=== PATIENT | female | born 1955 | race Caucasian/White ===

== ENCOUNTER 2022-12-09 13:54 | Outpatient (REF) | payer BC, SELFPAY ==
[2022-12-09 17:43] LABS: Appearance Urine Clear; Color Urine Yellow; Glucose Urine UA Negative (Negative); Leukocyte Esterase Urine Trace (Negative); Nitrite Urine Negative (Negative); PH 5.5 (5.0-9.0); UMIC TRIGGER UA YES; Urine Blood Moderate (2+) (Negative); Urine Ketones 15 mg/dL (Negative); Urine Protein Negative (Neg-Trace)
[2022-12-09 17:47] LABS: C Reactive Protein < 0.10 mg/dL (< or = 0.50); Rheumatoid Factor < 13.0 IU/mL (<15.0)
[2022-12-09 17:50] LABS: Bacteria Urine None Seen (None Seen); Hyaline Casts Urine 0-2 /LPF (0-2); WBC Urine 0-5 /HPF (0-5)
[2022-12-09 18:18] LABS: Creatinine Urine 158.21 mg/dL; Protein/Creatinine Ratio, Ur 0.05 (<0.2); Total Protein Urine Random 8 mg/dL (<12)
[2022-12-10 17:08] LABS: Complement C3 148 mg/dL (83-193)
[2022-12-10 19:37] LABS: Anti DNA DS Antibody 1 IU/mL; Antibody to SS-A Antigen <1.0 NEG AI (<1.0 NEG); Antibody to SS-B Antigen <1.0 NEG AI (<1.0 NEG); SM/Ribonucleoprotein Ab <1.0 NEG AI (<1.0 NEG); Smith Protein <1.0 NEG AI (<1.0 NEG)
[2022-12-10 21:04] LABS: Prot Elec - Albumin 5.2 g/dL (3.8-4.8); Prot Elec - Alpha1 0.3 g/dL (0.2-0.3); Prot Elec - Alpha2 0.7 g/dL (0.5-0.9); Prot Elec - Beta 1 0.5 g/dL (0.4-0.6); Prot Elec - Beta 2 0.4 g/dL (0.2-0.5); Prot Elec - Gamma 0.9 g/dL (0.8-1.7); Prot Elec - Total Protein 7.9 g/dL (6.1-8.1)
[2022-12-11 09:10] LABS: HBc Num1 0.07 S/CO (0.00-0.79); HBsAGNum1 0.23 S/CO (0.00-0.99); Hepatitis B Core Antibody Nonreactive (Nonreactive); Hepatitis B Surface Antigen Negative (Negative); ~HepC Num1 0.07 S/CO (0.00-0.79); ~Hepatitis C Antibody Nonreactive (Nonreactive)
[2022-12-11 09:45] LABS: HBS Num1 111.87 mIU/mL (0-7.99); ~Hepatitis B Surface Antibody REACTIVE (Nonreactive)
[2022-12-11 10:30] LABS: ~Hepatitis A Antibody IgM Nonreactive (Nonreactive)
[2022-12-12 23:05] LABS: Cyclic Citrullinated Peptide <16 UNITS
[2022-12-13 14:28] LABS: Immunoglobulin G Subclass 1 483 mg/dL (382-929); Immunoglobulin G Subclass 2 276 mg/dL (241-700); Immunoglobulin G Subclass 3 99 mg/dL (22-178); Immunoglobulin G Subclass 4 41.9 mg/dL (4-86); Immunoglobulin G Total 917 mg/dL (600-1540)
[2022-12-14 18:07] LABS: IgA 219 mg/dL (70-320); IgG 1005 mg/dL (600-1540); IgM 62 mg/dL (50-300)
[2022-12-15 14:28] LABS: Angiotensin Converting Enzyme 26.4 U/L (9-67)
[2022-12-15 15:04] LABS: DNAds, Crithidia Antibody Negative (Negative)
== END 2022-12-09 13:55 | disposition home or self-care (01) ==
LOC: HO.LAB 13:54
PROVIDERS: PCP Nurse Practitioner Family; Visit Provider Student in an Organized Health Care Education/Training Program
DX: Z11.7 Encounter for testing for latent tuberculosis infection (principal); M32.9 Systemic lupus erythematosus, unspecified; M35.00 Sjogren syndrome, unspecified; D89.89 Other specified disorders involving the immune mechanism, not elsewhere classified; M25.541 Pain in joints of right hand; D86.9 Sarcoidosis, unspecified; R76.8 Other specified abnormal immunological findings in serum
CPT/HCPCS: 81001; 82164; 82595; 82784; 84156; 84165; 86140; 86160; 86200; 86225; 86235; 86255; 86334; 86431; 86704; 86706; 86709; 86803; 87340

== ENCOUNTER → 2023-01-14 08:31 | Outpatient (BNVA) | payer BC, SELFPAY | PROVIDERS: PCP Nurse Practitioner Family; Visit Provider Student in an Organized Health Care Education/Training Program | DX: Z13.89 Encounter for screening for other disorder (principal) ==

== ENCOUNTER 2024-01-12 09:15 | Outpatient (AMB) | payer BC, SELFPAY ==
--- NOTE | 2024-01-12 09:19 | MHC.OFFVIS ---
Intake Vital Signs 01/12/24 09:21 Height 5 ft 4.5 in Weight 141 lb 15.643 oz BMI 24.0 BP 116/68 Blood Pressure Location Rt brachial Position Sitting Pulse 86 Pulse Source Pulse Oximeter Temp 97.6 F Temp Source Skin Pulse Oximetry (%) 99 Oxygen Delivery Method Room Air Intake Visit Reasons: Sicca Intake Note: Patient last seen 01/14/23 presents today for 1 yr follow up. Reports she had salivary gland biopsy done on 12/28/23 and it was negative for SS. Maintenance Mgr Required: No Accompanied by: Self / Same As Patient Allergies novacaine Allergy (Unknown, Uncoded 01/12/24 09:25) Unknown Medication List - Last Reconciled 01/12/24 by Susan Gomez MD amlodipine 2.5 mg PO DAILY cholecalciferol (vitamin D3) 25 mcg PO DAILY levothyroxine 75 mcg PO DAILY omeprazole 20 mg PO DAILY pilocarpine HCl (Salagen (pilocarpine)) 5 mg PO TID PRN HPI HPI Comments History of Present Illness Details 68-year-old female with sicca symptoms returns for follow-up. She just had a lip biopsy earlier this month and was told it was negative for Sjogren's. She remains frustrated that there is no identifiable cause of her dry mouth. She continues to do multiple measures including drinking plenty of water, showing XyliMelts gum, she only uses the pilocarpine every once in a while. Only when needed. She states that it is not consistently helpful. She states that sometimes when she takes pilocarpine she would have tingling and numbness of the outside of her right thigh. She also states that she gets pain points in multiple areas including her left buttock, arms and elbows. She was evaluated by a neuromuscular therapist and was advised to apply pressure on the painful spot until the pain releases she recently had an endoscopy and colonoscopy and states that 2 polyps were taken out. She is doing well otherwise Initial history: This is a 67-year-old female with past medical history hypothyroidism on levothyroxine, bilateral breast cancer s/p double mastectomy presents for evaluation dry mouth & positive CHERYL. The Condition started about 3 years ago when the patient noticed worsening dry mouth associated with tingling and numbness. she would also multiple mouth ulcers. She was evaluated by multiple specialists including dentists oral surgeons, [facility] and ENT. She has received different treatments including topical antifungals, oral antifungals. She sometimes has difficulty swallowing. she denies any dry mouth. Some of her symptoms were also attributed to nasal congestion so she has received Flonase nasal spray. Currently she has managing her symptoms with gum, Biotene? ?Mouthwash & drinking? plenty of water. She has dry skin and vaginal dryness. vaginal dryness is managed with topical estrogen. Patient denies any dry eyes. Denies any other symptoms such as unintentional weight loss, fevers, fatigue, joint pain, swelling, stiffness. She denies any froth in urine. States that she has had microscopic hematuria for years and was evaluated by Urology, multiple cystoscopies were done and a lesion was found in her bladder which was removed and was deemed a benign lesion. Patient denies any shortness of breath. no symptoms suggestive of Raynaud's no history of DVT/PE. [facility] Medical History Chronic rhinitis Hearing loss Dry mouth Surgical History H/O wisdom tooth extraction S/P tonsillectomy and adenoidectomy Hx of mastectomy Hx of breast implants, bilateral H/O breast reconstruction Family History Mother Dementia Hypothyroidism Brain bleed Stroke Father Diabetes Glaucoma Hypertension Sister MMA (methylmalonic aciduria) Low potassium syndrome Kidney stones Paternal Grandfather Leukemia Paternal Grandmother Breast cancer Kidney stones Social History Household Members: Spouse Patient Tobacco Use Status: Former Tobacco user Current occupational status: retired Review of Systems ENT Reports dry mouth Card Reports no additional complaints Resp Reports no additional complaints Musc Reports myalgias and Reports numbness Neuro Reports numbness Physical Exam Vital Signs: Last Vital Signs Temp 97.6 F 01/12/24 09:21 Pulse 86 01/12/24 09:21 BP 116/68 01/12/24 09:21 Pulse Ox 99 01/12/24 09:21 Oxygen Delivery Method Room Air 01/12/24 09:21 BMI result Body Mass Index 24.0 Const General: cooperative, healthy appearing, comfortable and no acute distress Nutritional Appearance: average body habitus Limitations: no limitations HEENT Other: Mildly dry oral mucosa Resp Effort & Inspection: normal respiratory effort and able to speak in complete sentences Auscultation: clear to auscultation bilaterally Cardio Rate: regular rate Rhythm: regular rhythm Extrem Other: No active synovitis Normal nailfold capillaroscopy Results Reviewed Results Reviewed: reviewed labs from 2020 which showed a positive CHERYL 1-80 speckled pattern. Normal ESR. Normal CBC Antithyroglobulin antibody and TPO antibody negative Assessment & Plan Assessment & Plan (1) CHERYL positive: Code(s): R76.8 - Other specified abnormal immunological findings in serum Plan: This is a 68-year-old female with a past medical history of hypothyroidism presents for evaluation of a 4 year history dry mouth and positive CHERYL 1-80 speckled. Comprehensive serology is unrevealing for autoimmune rheumatic disease. She has normal inflammatory markers. She had a lip biopsy earlier this month and it was negative for Sjogren's. Patient uses XyliMelts gums, drinks plenty of water and only uses pilocarpine as needed. At this point there is no evidence of an underlying autoimmune rheumatic disease. Follow-up in 1 year Plan I spent 17 minutes reviewing patient's chart, evaluating patient, counseling patient and documenting in the chart Medications: Changed From pilocarpine HCl (Salagen (pilocarpine)) 5 mg PO TID 270 tabs 1RF To pilocarpine HCl (Salagen (pilocarpine)) 5 mg PO TID PRN Coding Level of Care Code Est Pt Level 3 (24253) Diagnoses CHERYL positive R76.8
[2024-01-12 09:21] VITALS: BP 116/68; PULSE 86; TEMP 36.4; O2SAT 99; BMI 24.0
== END 2024-01-12 09:55 | disposition home or self-care (01) ==
PROVIDERS: PCP Nurse Practitioner Family; Visit Provider Student in an Organized Health Care Education/Training Program
DX: R76.8 Other specified abnormal immunological findings in serum (principal)
CPT/HCPCS: 99213

== ENCOUNTER → 2024-01-12 09:15 | Outpatient (BNVA) | payer BC, SELFPAY | PROVIDERS: Visit Provider Student in an Organized Health Care Education/Training Program ==